=== PATIENT | male | born 1980 | race Hispanic/Latino ===

== ENCOUNTER 2020-09-11 20:55 | Emergency (ER) | payer OTHER ==
[2020-09-11] MEDS ORDERED: Cephalexin 250 MG CAP ONE (21:26)
== END 2020-09-11 21:27 ==
LOC: NAV ERS 20:55
DX: T25.221A Burn of second degree of right foot, initial encounter (principal); T31.0 Burns involving less than 10% of body surface; K21.9 Gastro-esophageal reflux disease without esophagitis; Z79.899 Other long term (current) drug therapy
CPT/HCPCS: 99283